=== PATIENT | female | born 1950 | race African-American/Black ===

== ENCOUNTER 2017-01-19 04:14 | Day surgery (SDC) | payer OTHER ==
--- NOTE | ~2017-01-19 | HP ---
Unit #: [id number] #: [id number] Patient: LEYDA ESPARZA [id number] [address] [place], [place] [address] [id number] MR#: [id number] NAME: LEYDA ESPARZA. ROOM: Age: 66 Sex: F Admission Date: 01/19/2017 : 1950 Attending Physician: Lennie Donohue M.D. Primary Care Physician: Cheri Reyes M.D. HISTORY AND PHYSICAL CHIEF COMPLAINT Painless upper GI bleed. HISTORY This pleasant, 66-year-old female who is status post LAP-BAND with hypertension and DJD is admitted for a painless upper GI bleed. Two nights ago, the patient developed nausea and had some emesis, but did not look at the emesis. She felt well yesterday until 2 o'clock this morning when she began to vomit and saw that her emesis was maroon. States that she vomited a large amount. Had no pain with the above or lightheadedness. Denies melena or hematochezia. She presented to this emergency department early this morning with stable vital signs. She was bolused with 1 liter of saline, given Zofran, 80 mg of IV Protonix, and started on a Protonix drip. A NG tube was attempted, but was unsuccessful. On examination, she has a nontender abdomen. Her initial hematocrit is 34.6 with a MCV of 80.2. She is Hemoccult positive from below per the ER. PAST MEDICAL HISTORY 1. Essential hypertension. 2. Chronic low back pain. 3. DJD. 4. Status post LAP-BAND about nine years ago. 5. Bilateral total hip replacements. 6. Right knee replacement. 7. Total abdominal hysterectomy. 8. Cholecystectomy. 9. Breast reduction surgery. 10. Blepharoplasty. 11. Tummy tuck. 12. Ankle surgery. ALLERGIES Statins. HOME MEDICATIONS 1. Procardia XL 60 mg daily. 2. Zantac 150 mg daily. 3. Aspirin 81 mg daily. 4. Potassium 10 mEq daily. FAMILY HISTORY Colon cancer, prostate cancer, and lymphoma. Unit #: [id number] #: [id number] Patient: LEYDA ESPARZA SOCIAL HISTORY The patient lives alone. She is a lifelong nonsmoker. Does not drink alcohol. REVIEW OF SYSTEMS Notable for upper GI bleeding, hypertension, chronic low back pain, DJD, and abovementioned surgery. All other systems were reviewed and are otherwise negative. PHYSICAL EXAMINATION GENERAL APPEARANCE: Pleasant, mildly obese, 66-year-old female currently in no acute distress. VITAL SIGNS: Temperature 98.3, pulse 83, respirations 20, blood pressure 127/81, and O2 saturation is 97% on room air. HEENT: Eyes: PERRLA. Extraocular muscles are intact. Pharynx is benign. NECK: Supple without adenopathy or thyromegaly. CHEST: Clear. CARDIAC: Normal S1 and S2 without S3, S4, or murmur. ABDOMEN: Bowels sounds are present. No hepatosplenomegaly, tenderness, or masses. EXTREMITIES: Without C, C, or E. Pedal pulses are present. NEUROLOGIC: Patient is awake, alert, and oriented. Cranial nerves are intact. Equal strength throughout. DIAGNOSTIC STUDIES LABORATORY: Hematocrit is 34.6 and normal white count and platelet count. Chemistries are pending. CARDIOVASCULAR: EKG: Normal sinus rhythm, rate 68, normal appearing. IMAGING: Chest x-ray: No acute disease. ASSESSMENT 1. Painless upper GI bleed in patient who is status post LAP-BAND placement about nine years ago without complications. Rule out peptic ulcer disease. 2. Essential hypertension. 3. DJD. PLANS 1. Await chemistries. 2. IV fluids. 3. Continue proton pump inhibitor drip. 4. SCDs for DVT prophylaxis. 5. Serial H and H. 6. Change antihypertensive medications to an alternate route. 7. Will ask Dr. Lee or Dr. Ha to see this morning. Dictated by Tommie Hernandez/nan TD: 01/19/2017 06:59 Unit #: [id number] #: [id number] Patient: LEYDA ESPARZA JOB #: [id number] HISTORY AND PHYSICAL Page 1 of 1 X Cristina Mitchell MD HISTORY AND PHYSICAL
--- NOTE | ~2017-01-19 | DS ---
Unit #: [id number] #: [id number] Patient: LEYDA BRADLEY [id number] [address] [place], [place] [address] [id number] O MR#: [id number] NAME: LEYDA BRADLEY. ROOM: Age: 66 Sex: F Admission Date: 01/19/2017 : 1950 Discharge Date: 01/19/2017 Attending Physician: Cruz Ha M.D. Primary Care Physician: Cheri Reyes M.D. DISCHARGE SUMMARY REVISED/ADDENDED REPORT PRINCIPAL DIAGNOSES 1. Hematemesis secondary to esophagitis. 2. Esophagitis secondary to retained food from lap band. 3. Urinary tract infection with pending urine culture. 4. Hypokalemia. 5. Hypertension. 6. Status post lap band, noncompliant with routine followup. 7. Degenerative joint disease. 8. Obesity. CONSULTANTS Dr. Ha - General Surgery. PROCEDURES EGD on January 19, 2017, with findings of very tight lap band, esophagitis, retained food stuff. Balloon was deflated. CLINICAL HISTORY/HOSPITAL COURSE Ms. Bradley is a very nice 66-year-old -[place] female who presents to the emergency department with vomiting blood. Please refer to H and P for further details. Hemoglobin was stable. General surgery was consulted. The patient has had no further hematemesis following admission. Dr. Ha performed EGD and deflated patient's lap band balloon which appeared to be too tight. She had some associated esophagitis from retained food stuff. Given her hemoglobin has been stable and she is able to tolerate a diet, patient will be discharged home later today and she states that she will follow up with the surgeon who performed her lap band in a couple of weeks. She does admit she has not seen that surgeon in approximately four years. She has had a change in weight since then and likely her lap band will need to be adjusted in the short term. I will note urinalysis reveals questionable urinary tract infection. The patient does have increased urinary frequency but denies burning. I will treat empirically with Keflex and will followup urine culture. DISCHARGE CONDITION Stable. DISCHARGE STATUS Discharge to home. Unit #: [id number] #: [id number] Patient: LEYDA BRADLEY DISCHARGE MEDICATIONS 1. Protonix 40 mg p.o. daily with one refill. 2. Nifedical XL 60 mg daily. 3. Ranitidine 150 mg daily. That will be held until after two months of Protonix. 4. Aspirin 81 mg daily. 5. Potassium chloride 10 mEq p.o. daily. 6. Keflex 500 mg t.i.d. for three days. DISCHARGE INSTRUCTIONS The patient was instructed to follow a heart healthy diet. She will continue instructions regarding her lap band as previously given to her. FOLLOWUP The patient will follow up with Dr. Reyes in two weeks. She will follow up with the surgeon who performed her lap band in two weeks as well. Dictated by... Tommie Miller TD: 01/22/2017 10:35 JOB #: [id number] ADDENDUM I did discuss discharge medications with patient, and she states she cannot tolerate Protonix. It makes her ill. She will stay on ranitidine 150 mg p.o. b.i.d. which is actually her home dose. Dictated by... Tommie Miller TD: 01/22/2017 09:44 JOB #: [id number] Maxte [facility] DISCHARGE SUMMARY Page 1 of 1 X Audrey Colon MD X DISCHARGE SUMMARY
--- NOTE | ~2017-01-19 | CR72 ---
[facility] A Service of [facility] & [facility] RADIOLOGY TEXT RESULTS PATIENT: LEYDA ESPARZA LOCATION: H[facility]SE BREAKER : [birth year] UNIT #: [id number] AGE: [address]: Cruz Ha MD SEX: F ORDER DR: [id number] [facility] [address] [place], [place] [address] [id number] I MR#: [id number] Acc #: [id number] NAME: LEYDA ESPARZA. : 1950 SEX: F STUDY DATE/TIME: 01/19/2017 5:02 UNIT: [facility] ROOM: 25255 STUDY DESCRIPTION: CR Chest Single View Portable Attending Physician: Audrey Colon M.D. Ordering Physician: Lennie Donohue M.D. Primary Care Physician: Cheri Reyes M.D. MEDICAL IMAGING REPORT This report is preliminary unless electronic signature is present EXAM Portable chest. INDICATIONS Epigastric abdominal pain and vomiting today. PROCEDURE Frontal view of the chest. COMPARISON 08/08/2014 FINDINGS Heart size stable. No dense consolidation, pleural fluid or pneumothorax. IMPRESSION No active process. Dictated by... Manoj Pollard M.D. THIS IS AN ELECTRONICALLY VERIFIED REPORT Manoj Pollard M.D. at 01/24/2017 3:01 PM EED/taras TD: 01/19/2017 13:22 JOB #: [id number] MEDICAL IMAGING REPORT Page 1 of 1 COPY
--- NOTE | ~2017-01-19 | OR ---
Unit #: [id number] #: [id number] Patient: LEYDA ESPARZA [id number] [address] [address] [id number] I MR#: [id number] NAME: LEYDA ESPARZA. ROOM: 36[address] Date of Procedure: 01/19/2017 Admission Date: 01/19/2017 Surgeon: Cruz Ha M.D. : 1950 Attending Physician: Audrey Colon M.D. Primary Care Physician: Cheri Reyes M.D. OPERATIVE REPORT PREOPERATIVE DIAGNOSIS Dysphagia secondary to obstruction from lap band. POSTOPERATIVE DIAGNOSIS Dysphagia secondary to obstruction from lap band. PROCEDURE PERFORMED Removal of lap band fluid. ANESTHESIA Local anesthetic. COMPLICATIONS None. INDICATIONS FOR PROCEDURE The patient is a 66-year-old lady, who presents with dysphagia likely from edema at the lap band. DESCRIPTION OF PROCEDURE The patient was placed in a supine position. Her anterior abdominal region was prepped. Using a Marsh needle, I was able to access the lap band port. I removed 2 mL of fluids. Band-Aid was placed. She tolerated the procedure well without complication. Dictated by... Cruz Ha M.D. JNO/rossy TD: 01/20/2017 02:40 JOB #: [id number] Unit #: [id number] #: [id number] Patient: LEYDA ESPARZA OPERATIVE REPORT Page 1 of 1 X Cruz Ha MD X PROCEDURE OPERATIVE NOTE
--- NOTE | ~2017-01-19 | OR ---
Unit #: [id number] #: [id number] Patient: LEYDA ESPARZA [id number] [address] [address] [id number] I MR#: [id number] NAME: LEYDA ESPARZA. ROOM: [facility] Date of Procedure: 01/19/2017 Admission Date: 01/19/2017 Surgeon: Cruz Ha M.D. : 1950 Attending Physician: Audrey Colon M.D. Primary Care Physician: Cheri Reyes M.D. OPERATIVE REPORT PREOPERATIVE DIAGNOSIS Hematemesis. POSTOPERATIVE DIAGNOSES 1. Erosive esophagitis. 2. Mild gastritis. PROCEDURE PERFORMED Esophagogastroduodenoscopy with biopsy for Helicobacter pylori. ANESTHESIA IV sedation. COMPLICATIONS None. INDICATIONS FOR PROCEDURE The patient is a 66-year-old lady who presents with hematemesis. She has a lap band. Fluid was removed. She now presents for endoscopic evaluation. DESCRIPTION OF PROCEDURE The patient was taken to the operative theater and placed in the left lateral decubitus position. IV sedation was initiated. EGD scope was passed under direct vision into the esophagus. The esophagus showed gross esophagitis at the GE junction. The GE junction was widely patent. There was some mild gastritis. The duodenum was normal. There was no gross blood in the stomach. I retroflexed the scope and did not see an erosion of the band or did not see a lesion at the GE junction. A biopsy was taken for H. pylori. She tolerated the procedure well and sent to the recovery room in good condition. Dictated by... Tommie Lanier/rossy TD: 01/20/2017 08:47 JOB #: [id number] Unit #: [id number] #: [id number] Patient: LEYDA ESPARZA OPERATIVE REPORT Page 1 of 1 X Cruz Ha MD X PROCEDURE OPERATIVE NOTE
--- NOTE | ~2017-01-19 | DS ---
Unit #: [id number] #: [id number] Patient: LEYDA BRADLEY [id number] [address] [place], [place] [address] [id number] O MR#: [id number] NAME: LEYDA BRADLEY. ROOM: Age: 66 Sex: F Admission Date: 01/19/2017 : 1950 Discharge Date: 01/19/2017 Attending Physician: Cruz Ha M.D. Primary Care Physician: Cheri Reyes M.D. DISCHARGE SUMMARY PRINCIPAL DIAGNOSES 1. Hematemesis secondary to esophagitis. 2. Esophagitis secondary to retained food from lap band. 3. Urinary tract infection with pending urine culture. 4. Hypokalemia. 5. Hypertension. 6. Status post lap band, noncompliant with routine followup. 7. Degenerative joint disease. 8. Obesity. CONSULTANTS Dr. Ha - General Surgery. PROCEDURES EGD on January 19, 2017, with findings of very tight lap band, esophagitis, retained food stuff. Balloon was deflated. CLINICAL HISTORY/HOSPITAL COURSE Ms. Bradley is a very nice 66-year-old -[place] female who presents to the emergency department with vomiting blood. Please refer to H and P for further details. Hemoglobin was stable. General surgery was consulted. The patient has had no further hematemesis following admission. Dr. Ha performed EGD and deflated patient's lap band balloon which appeared to be too tight. She had some associated esophagitis from retained food stuff. Given her hemoglobin has been stable and she is able to tolerate a diet, patient will be discharged home later today and she states that she will follow up with the surgeon who performed her lap band in a couple of weeks. She does admit she has not seen that surgeon in approximately four years. She has had a change in weight since then and likely her lap band will need to be adjusted in the short term. I will note urinalysis reveals questionable urinary tract infection. The patient does have increased urinary frequency but denies burning. I will treat empirically with Keflex and will followup urine culture. DISCHARGE CONDITION Stable. DISCHARGE STATUS Discharge to home. DISCHARGE MEDICATIONS 1. Protonix 40 mg p.o. daily with one refill. Unit #: [id number] #: [id number] Patient: LEYDA BRADLEY 2. Nifedical XL 60 mg daily. 3. Ranitidine 150 mg daily. That will be held until after two months of Protonix. 4. Aspirin 81 mg daily. 5. Potassium chloride 10 mEq p.o. daily. 6. Keflex 500 mg t.i.d. for three days. DISCHARGE INSTRUCTIONS The patient was instructed to follow a heart healthy diet. She will continue instructions regarding her lap band as previously given to her. FOLLOWUP The patient will follow up with Dr. Reyes in two weeks. She will follow up with the surgeon who performed her lap band in two weeks as well. Dictated by... Audrey Colon M.D. SHERRI/kev TD: 01/22/2017 10:35 JOB #: [id number] DISCHARGE SUMMARY Page 1 of 1 X Audrey Colon MD X DISCHARGE SUMMARY
--- NOTE | ~2017-01-19 | CO ---
Unit #: [id number] #: [id number] Patient: LEYDA ESPARZA [id number] [address] [facility]. [place], [place] [address] [id number] I MR#: [id number] NAME: LEYDA ESPARZA. ROOM: [address]38[address] Age: 66 Sex: F Admission Date: 01/19/2017 : 1950 Attending Physician: Audrey Colon M.D. Primary Care Physician: Cheri Reyes M.D. Consultation Date: 01/19/2017 CONSULTATION REPORT BRIEF HISTORY The patient is a 66-year-old lady with a 24-hour history of hematemesis. It started out with dark fluid, now bright red blood. She has also had a long-term history of dysphagia. She has a lap band for approximately 10 years, but has not followed up in the office for over 9 years. She states she is barely able to eat more than a [place] cup of solid food. She does have persistent heartburn symptoms at night. PAST MEDICAL HISTORY Cardiac dysfunction and hypertension. PAST SURGICAL HISTORY She has had cholecystectomy, hysterectomy, lap band, tummy tuck, and breast reduction. MEDICATIONS Home medications are Zantac and potassium. SOCIAL HISTORY No smoking. No alcohol. FAMILY HISTORY Negative for GI malignancy. REVIEW OF SYSTEMS No cardiopulmonary complaints at this time. Else, 10 systems reviewed and negative. PHYSICAL EXAMINATION GENERAL: She is awake, alert, in no distress. VITAL SIGNS: Currently, afebrile. HEENT: Unremarkable. NECK: Supple. No JVD. Trachea midline. LUNGS: Clear to auscultation. Bilateral breath sounds symmetric. CARDIOVASCULAR: Regular rate and rhythm. ABDOMEN: Soft, nontender, and nondistended. I palpate no masses. No hepatosplenomegaly. EXTREMITIES: No clubbing, cyanosis, or edema. DIAGNOSTIC STUDIES LABORATORY RESULTS: Labs are pending at the time of consultation. ASSESSMENT Likely chronic esophagitis secondary to over tightening or edema at [facility] Unit #: [id number] #: [id number] Patient: LEYDA ESPARZA band site. PLAN Recommend proton pump inhibitors. We will plan for decompression of lap band. We will perform EGD to evaluate possible ulcer disease. Dictated by... Cruz Tommie Stevens TD: 01/20/2017 02:52 JOB #: [id number] CONSULTATION REPORT Page 1 of 1 X Cruz Ha MD CONSULTATION REPORT
--- NOTE | ~2017-01-19 | EKG ---
PATIENT: LEYDA ESPARZA UNIT #: [id number] Ventricular Rate: 67 BPM Atrial Rate: 67 BPM P-R Interval: 162 ms QRS Duration: 70 ms Q-T Interval: 416 ms QTC Calculation(Bezet): 439 ms P [place]: 59 degrees Calculated R [place]: 38 degrees Calculated T [place]: 26 degrees Diagnosis Line: Normal sinus rhythm Diagnosis Line: Normal ECG Diagnosis Line: No previous ECGs available Diagnosis Line: Confirmed by EDWAR BRAXTON MD ([id number]) on 01/24/2017 Diagnosis Line: 2:28:32 PM INTERPRETING MD: IRAIS MOLINA
[~2017-01-19 04:14] MED LIST: CIPRO PO; LORTAB 5/500 TA1 TA1 PO; METRONIDAZOLE PO; PHENERGAN PO
[2017-01-19] MEDS ORDERED: NIFEDICAL PO (04:53)
[2017-01-19] MEDS ORDERED: TALADINE150 MG PO (04:54)
[2017-01-19] MEDS ORDERED: POTASSIUM CHLO10 ME2 PO (04:54)
[2017-01-19] MEDS ORDERED: ASPIRIN81 MG PO (04:54)
[2017-01-19 05:16] LABS: POC - CKMB <1.0 ng/mL (0.0-7.9); POC - TROPONIN <0.05 ng/mL (<=0.05)
[2017-01-19 05:26] LABS: BASOPHIL# 0.1 X10e3 (0-0.3); BASOPHIL% 0.7 % (0-2.5); EOSINOPHIL# 0.2 X10e3 (0-0.7); EOSINOPHIL% 1.6 % (0.0-7.0); HEMATOCRIT 34.6 % (35.0-45.0); HEMOGLOBIN 10.9 gm/dL (12.0-16.0); LYMPHOCYTE# 2.8 X10e3 (1.0-3.5); LYMPHOCYTE% 28.8 % (17.0-45.0); MEAN CELL VOLUME 80.2 FL (83-96); MEAN CORPUSCULAR HEMOGLOBIN 25.2 PG (28-34); MEAN CORPUSCULAR HGB CONC 31.5 g/dL (30-36); MEAN PLATELET VOLUME 9.3 FL (6.5-11.5); MONOCYTE# 0.7 X10e3 (0-1.0); MONOCYTE% 6.6 % (3.0-12.0); NEUTROPHIL# 6.1 X10e3 (1.5-7.1); NEUTROPHIL% 62.3 % (40-75); PLATELET COUNT 334 X10e3 (140-420); RED BLOOD COUNT 4.32 X10e (3.90-5.30); RED CELL DISTRIBUTION WIDTH 16.1 % (11.0-15.5); WHITE BLOOD COUNT 9.8 X10e3 (4.0-10.5)
[2017-01-19 05:33] LABS: DIFF IND NO
[2017-01-19 05:39] LABS: PARTIAL THROMBOPLASTIN TIME 26.3 SECONDS (23.5-31.3); PROTHROMBIN TIME (PATIENT) 10.8 SECONDS (10.0-11.7)
[2017-01-19 06:00] LABS: ALBUMIN SERUM 3.8 g/dL (3.5-5.0); ALKALINE PHOSPHATASE 93 U/L (32-92); ALT (SGPT) 15 U/L (10-40); AST (SGOT) 21 U/L (10-42); BILIRUBIN,TOTAL 0.7 mg/dL (0.2-2.0); BLOOD UREA NITROGEN 35 mg/dL (9-23); CALCIUM SERUM 8.9 mg/dL (8.4-10.2); CARBON DIOXIDE 28 mmol/L (22-31); CHLORIDE 107 mmol/L (100-111); GLOM FILT RATE Estimated 68.5 mL/min (>60); GLUCOSE FASTING 116 mg/dL (70-110); MAGNESIUM 1.9 mg/dL (1.6-3.0); POTASSIUM 3.4 mmol/L (3.5-5.1); PROTEIN TOTAL SERUM 7.7 g/dL (6.0-8.3); SODIUM 142 mmol/L (135-145)
[2017-01-19 06:09] LABS: BILIRUBIN, DIRECT <0.1 mg/dL (0.0-0.2); BILIRUBIN,INDIRECT 0.6 mg/dL (0.0-0.9)
[2017-01-19 07:14] LABS: URINE SOURCE CLEAN CATCH
[2017-01-19 07:22] LABS: URINE APPEARANCE CLEAR; URINE BILIRUBIN NEG (NEG); URINE BLOOD 2+ (NEG); URINE COLOR YELLOW; URINE GLUCOSE NEG (NEG); URINE KETONE NEG (NEG); URINE LEUKOCYTE ESTERASE 2+ (NEG); URINE NITRATE NEG (NEG); URINE PH 7.5 (5-8); URINE PROTEIN NEG (NEG); URINE SPECIFIC GRAVITY 1.017 (1.003-1.035); URINE UROBILINOGEN 0.2 MG/DL (NEG)
[2017-01-19 07:24] LABS: CULTURE INDICATED? YES; URINE BACTERIA AUWI NEG (NEGATIVE); URINE SQUAMOUS EPITHELIAL CELL NONE SEEN /[HPF]
== END 2017-01-19 09:35 | disposition home or self-care (01) ==
LOC: CED 04:14 → CEDOF 06:15 → CED 06:15 → CEDOF 08:12 → COPS 09:30
PROVIDERS: Student in an Organized Health Care Education/Training Program
DX: K20.8 Other esophagitis (principal); K29.70 Gastritis, unspecified, without bleeding; I10 Essential (primary) hypertension; G89.29 Other chronic pain; M54.5 Low back pain; Z89.622 Acquired absence of left hip joint; Z89.621 Acquired absence of right hip joint; Z89.521 Acquired absence of right knee; Z90.710 Acquired absence of both cervix and uterus; Z79.82 Long term (current) use of aspirin; Z88.8 Allergy status to other drugs, medicaments and biological substances; Z79.899 Other long term (current) drug therapy; Z98.890 Other specified postprocedural states; Z90.49 Acquired absence of other specified parts of digestive tract; Z80.0 Family history of malignant neoplasm of digestive organs; Z80.42 Family history of malignant neoplasm of prostate
CPT/HCPCS: 36415; 71010; 80048; 80076; 81003; 82553; 83605; 83735; 84484; 85025; 85610; 85730; 86850; 86900; 86901; 87077; 87086; 93005; 96361; 96374; 96375; 99291; C9113; J2405